=== PATIENT | male | born 1965 | race African-American/Black ===

== ENCOUNTER 2023-12-23 08:36 | Emergency (ER) | payer SELFPAY ==
[~2023-12-23] VITALS: Ht 172.7 cm; Wt 53.6 kg
[2023-12-23 10:25] VITALS: BP 149/91; PULSE 77; RESP 16; TEMP 98.2; O2SAT 98
[2023-12-23] MEDS ORDERED: ACET-1881 PO (10:33)
[2023-12-23] MEDS ORDERED: LIDO5DIS21 TOP (10:33)
[2023-12-23] MEDS ORDERED: MELO7.5T7 PO (10:33)
== END 2023-12-23 10:44 | disposition home or self-care (01) ==
LOC: ER 08:36
DX: M25.552 Pain in left hip (principal); R11.2 Nausea with vomiting, unspecified; R19.7 Diarrhea, unspecified
CPT/HCPCS: 73502